=== PATIENT | male | born 1975 | race Hispanic/Latino ===

== ENCOUNTER 2017-10-14 06:13 | Day surgery (SDC) | payer OTHER ==
[2017-10-14 07:25] LABS: INR 1.59 (0.87-1.13)
[2017-10-14 07:26] LABS: Partial Thromboplastin Time 35.1 Sec. (24.2-36.6)
[2017-10-14] MEDS ORDERED: NACL 0.9% 500 ML 0 ML ONE (07:57)
[2017-10-14] MEDS ORDERED: VERSED IV ONE ×2 (07:59→09:00)
[2017-10-14] MEDS ORDERED: SUBLIMAZE ONE (08:00)
[2017-10-14] MEDS ORDERED: HURRICAINE ONE 20% TOPICAL SPRAY MM NR (09:00)
[2017-10-14] MEDS ORDERED: SUBLIMAZE IV ONE (09:00)
--- NOTE | 2017-10-14 09:39 | Short Stay Summary ---
Short Stay Documentation Date of service: 10/14/17 - History H&P: obtained from office - Allergies and Medications Current Medications: Allergies No Known Allergies Allergy (Unverified 10/14/17 06:54) Home Medications Medication Instructions Recorded Confirmed Last Taken Type Aspirin [Lo-Dose Aspirin EC] 81 mg PO DAILY 10/14/17 10/14/17 10/13/17 History Metoprolol [Lopressor] 25 mg PO BID 10/14/17 10/14/17 10/13/17 History Warfarin [Coumadin] 7.5 mg PO QDAY 10/14/17 10/14/17 10/13/17 History - Physical exam General appearance: no acute distress Integumentary: no rash HEENT: Atraumatic Lungs: Clear to auscultation Breasts: deferred Heart: Regular rate, Murmur Gastrointestinal: normal Male Genitourinary: deferred Female Genitourinary: deferred Rectal Exam: deferred Extremities: no ischemia Neurological: Normal gait - Brief post op/procedure progress note Date of procedure: 10/14/17 Pre-op diagnosis: Aortic regurgitation Post-op diagnosis: same Procedure: KAY Anesthesia: MAC Findings: See report Surgeon: CARMENCITA SALAZAR Estimated blood loss: none Pathology: none Condition: stable - Hospital course Hospital course: Uneventful - Disposition Condition at discharge: Good Disposition: DC-01 TO HOME OR SELFCARE Short Stay Discharge Plan Activity: advance as tolerated Weight Bearing Status: Partial Weight Bearing Diet: regular Follow up with: CARMENCITA SALAZAR MD [Primary Care Provider] - 7 Days
[2017-10-14 11:22] VITALS: BP 100/50
== END 2017-10-14 11:20 | disposition home or self-care (01) ==
LOC: CATHLABREC 06:13 → EDBD 08:30 → EDSTATUS 08:30 → CATHLABREC 11:20
PROVIDERS: ATTEND Internal Medicine
DX: I34.0 Nonrheumatic mitral (valve) insufficiency (principal); I36.1 Nonrheumatic tricuspid (valve) insufficiency; Q21.0 Ventricular septal defect; Z79.82 Long term (current) use of aspirin; Z79.899 Other long term (current) drug therapy; Z79.01 Long term (current) use of anticoagulants; Z82.49 Family history of ischemic heart disease and other diseases of the circulatory system; Z83.3 Family history of diabetes mellitus; Z98.890 Other specified postprocedural states; Z95.0 Presence of cardiac pacemaker; Z95.4 Presence of other heart-valve replacement
CPT/HCPCS: 36415; 85610; 85730; 93312; 93320; 93325; J2250; J3010; J7040